=== PATIENT | female | born 1985 | race African-American/Black ===

== ENCOUNTER 2017-08-20 04:28 | Emergency (ER) | payer OTHER ==
[~2017-08-20] VITALS: Ht 180.3 cm; Wt 72.6 kg
--- NOTE | ~2017-08-20 | EKG ---
[address] [place] [address] ELECTROCARDIOGRAM REPORT Name: JAYCOB MAGALLON Vicky Room #: [id number] Admission: 08/20/17 Attend Phys: Discharge: Date of : 85 Report #: [id number] THIS REPORT FOR: //name// [facility] ED Test Date: 2017-08-20 Test Time: 05:14:54 Pat Name: JAYCOB MAGALLON Department: Room: Gender: F Nurse Licensed Practical: AMANDA : 1985 Requested By: Lobito Desai Order Number: [id number] MD: Jeffrey Brand Measurements Intervals Mobile Rate: 74 P: 75 NJ: 152 QRS: 56 QRSD: 79 T: 44 QT: 374 QTc: 415 Interpretive Statements Sinus rhythm No previous ECG available for comparison Electronically Signed On 08-20-2017 15:00:50 [employer] by Jeffrey Brand [email or web address] <ELECTRONICALLY SIGNED> By: Jeffrey Brand MD 08/20/17 1500 0514 0514 Jeffrey Brand MD /EPI
[2017-08-20 04:32] VITALS: BP 126/90
[2017-08-20 04:52] LABS: URINE BLOOD 1+ (Negative); URINE COLOR YELLOW; URINE GLUCOSE-RANDOM* NEGATIVE (Negative); URINE KETONES 3+ (Negative); URINE NITRITE-REFLEX NEGATIVE (Negative); URINE PROTEIN (DIPSTICK) 1+ (Negative); URINE SPECIFIC GRAVITY >= 1.030 (1.005-1.035)
[2017-08-20 04:55] LABS: ICTOTEST (BILI CONFIRMATORY) Negative (Negative); URINE BILIRUBIN NEGATIVE (Negative); URINE CLARITY SL CLOUDY; URINE LEUKOCYTES-REFLEX TRACE (Negative); URINE REDUCING SUBSTANCE NEGATIVE
[2017-08-20 04:58] LABS: ABSOLUTE NEUTROPHILS 8.6 thou/uL (1.4-8.2); BASOPHILS 0.5 % (0.0-2.0); HEMATOCRIT 40.1 % (37.0-47.0); HEMOGLOBIN 13.5 gm/dL (12.0-15.0); MCH 30.3 pg (26.0-34.0); MCHC 33.7 g/dL (28.0-37.0); PLATELET COUNT 234 thou/uL (150-400); POLYS 84.5 % (36.0-66.0); RBC 4.46 mil/uL (4.20-5.00); RDW 13.3 % (10.5-14.5); WBC 10.2 thou/uL (4.0-11.0)
[2017-08-20 05:00] LABS: AMP/METHAMP Negative (Negative); BARBITURATES Negative (Negative); BENZODIAZEPINES Negative (Negative); COCAINE Negative (Negative); METHADONE Negative (Negative); OPIATES Negative (Negative); PCP Negative (Negative)
[2017-08-20 05:02] LABS: CALCIUM 9.9 mg/dL (8.5-10.1); CREATININE 0.9 mg/dL (0.6-1.0); POTASSIUM 3.5 mmol/L (3.5-5.1)
[2017-08-20 05:07] LABS: ALBUMIN 4.9 g/dL (3.4-5.0); SALICYLATE 3.4 mg/dL (2.8-20.0); TOTAL BILIRUBIN 0.7 mg/dL (<0.1-1.0); TOTAL PROTEIN 8.7 g/dL (6.4-8.2)
[2017-08-20 05:39] LABS: SQUAMOUS >10 Many /LPF (0-3)
[2017-08-20 05:40] LABS: CASTS None Seen /LPF (None Seen); MUCUS >6 Heavy strn/LPF (None Seen); URINE RBC 3-10 Few /HPF (0-2); URINE WBC-REFLEX 6-15 Few /HPF (0-5)
[2017-08-20 05:41] LABS: BACTERIA-REFLEX >30 Many /HPF (None Seen)
[2017-08-20 20:34] VITALS: BP 107/80
[2017-08-21 08:27] LABS: ANION GAP 8 mmol/L (7-16); BUN 5 mg/dL (7-18); CALCIUM 8.9 mg/dL (8.5-10.1); CHLORIDE 108 mmol/L (98-107); CO2 24 mmol/L (21-32); CREATININE 0.8 mg/dL (0.6-1.0); GLUCOSE 113 mg/dL (74-106); POTASSIUM 3.9 mmol/L (3.5-5.1); SODIUM 140 mmol/L (136-145)
[2017-08-21 20:18] VITALS: BP 102/69
== END 2017-08-21 20:19 ==
LOC: ER 04:28 → EROBS 19:32 → ER 08-21 20:19
PROVIDERS: Emergency Medicine; Nurse Practitioner Family
DX: T14.91XA Suicide attempt, initial encounter (principal); T45.7X1A Poisoning by anticoagulant antagonists, vitamin K and other coagulants, accidental (unintentional), initial encounter; E03.9 Hypothyroidism, unspecified; F31.9 Bipolar disorder, unspecified; F43.10 Post-traumatic stress disorder, unspecified; F17.210 Nicotine dependence, cigarettes, uncomplicated; Y92.89 Other specified places as the place of occurrence of the external cause